=== PATIENT | female | born 1985 | race Caucasian/White ===

== ENCOUNTER 2017-05-05 09:27 | Inpatient (IN) | payer OTHER ==
[~2017-05-05] VITALS: Ht 167.6 cm; Wt 92.0 kg
[~2017-05-05 09:27] MED LIST: AZITHROMYCIN250 MG PO; PREDNISONE20 MG PO; PRENATAL VITAM1 EAC7 PO; PROVENTIL HFA6.7 GM INH
--- NOTE | 2017-05-14 09:05 | NUR ---
05/14/17 0905 Yesenia Randall 0843 PT AWAKE AND TALKING. IV INFUSING WITH LR AND 30 OF PIT. 0856 MD AT BEDSIDE. 0902 BABY SKIN TO SKIN WITH PT.
--- NOTE | 2017-05-15 10:38 | OR ---
[facility] [address] [place] [id number] Signed DATE OF OPERATION: 05/14/2017 SURGEON: Sharan Espinal MD PREOPERATIVE DIAGNOSIS: Term , previous section x3, and sterilization. POSTOPERATIVE DIAGNOSIS: Term , previous section x3, and sterilization. PROCEDURE PERFORMED: Repeat low transverse segment section delivery of live male infant with immediate bilateral tubal ligation. STAND GRINDER: Dr. Olguin. ANESTHESIA: Spinal. ESTIMATED BLOOD LOSS: 500 mL. COMPLICATIONS: None. DRAINS: Jennings to bladder. FINDINGS: Live male infant, Apgars 8 and 9, weight 8 pounds and 1 ounce. Normal uterus with few filmy omental adhesions to the anterior upper portion of the uterus and normal tubes and ovaries bilateral. There was a large amount of omental tissue adherent to the lower left side of the anterior wall peritoneum, and the bladder was somewhat raised up the lower uterine segment that there were no adhesions between the anterior abdominal wall and the lower uterine segment. Electronically Signed By: SHARAN ESPINAL MD 05/15/17 1038 PATIENT NAME: SOPHIE ENRIQUEZ OPERATIVE REPORT DATE OF : 89 PHYSICIAN: SHARAN ESPINAL MD REPORT #: [id number] REPORT IS CONFIDENTIAL AND NOT TO BE RELEASED WITHOUT AUTHORIZATION [facility] [address] [place] [id number] Signed DESCRIPTION OF PROCEDURE: The patient was brought to the operating room and placed in supine position. After adequate general anesthesia was obtained, was prepped and draped in usual sterile fashion. Jennings catheter was placed in the bladder. Pfannenstiel skin incision was made through previous surgical scar. Subcutaneous tissue was dissected with scalpel and the Bovie. Subcutaneous tissue was nicked and extended in transverse fashion using curved scissors. The underlying abdominal musculature was scarred along the midline and adherent to the peritoneum and also in several places to the omentum. This all seemed to be one in the midline and seemed to be one thick area of scar tissue. Higher up near the umbilicus, a thinner area was noted. This was grasped with hemostats, elevated, and nicked with Metzenbaum scissors and finger placed in the abdomen and swept around to make sure there were no adhesions present in the incision opened with Prado scissors along the midline. Care was taken to open the scar tissue in layers closer to the pelvis to avoid the bladder. The muscle was using Metzenbaum scissors. The peritoneum and the omentum were taken down until had an adequate opening in the abdomen. There were few filmy omental adhesions to the anterior upper uterus and these were cauterized with the Bovie to free them. At this point, the uterus was free and Avni self-retaining retractor could be inserted and so this was placed in the abdomen. The lower uterine segment was identified. The bladder could be seen on the lower uterine segment. So an area approximately 2-3 cm above the bladder was opened in the midline. Using a scalpel and finger dissection, extended the incision in a transverse fashion. Bulging bag of clear fluid came from the incision. This was opened with pickups with teeth. The fetus was noted to be in transverse position with the head to the right. After rupturing membranes, the head was brought down into the lower uterine segment and the infant delivered in vertex presentation. The 's mouth and nose were suctioned with a bulb syringe while the cord was doubly clamped and cut. The was passed off the table in good condition to awaiting nurse. The placenta was manually removed and uterine cavity explored with a lap pad to remove any retained membranes. An angle stitch of 0-Monocryl was placed at one end of the incision and running locking stitch of 0-Monocryl starting at the other end and used to close the incision. A second running locking stitch of 0-Monocryl was used to imbricate the first layer. Good hemostasis was noted. The entire pelvis was irrigated, suctioned, and examined and any superficial bleeding spot was cauterized with the Bovie. At this point, the right fallopian tube was identified and midportion of the tube grasped with [place] clamp. The entire length of the tube could be seen including the fimbriated end. An avascular portion of the mesosalpinx under the [place] was opened with a Bovie and then two ligatures of 0-chromic were passed through the hole and the fallopian tube tied on either side of the Delmy clamp. The intervening portion of the tube was removed using Metzenbaum scissors and the two cut ends cauterized with the Bovie. Good hemostasis was noted. The left side was done in similar fashion, grasping midportion of the tube. There were few filmy adhesions from the tube to the ovary and these were taken down to free up the Electronically Signed By: SHARAN ESPINAL MD 05/15/17 1038 PATIENT NAME: SOPHIE ENRIQUEZ OPERATIVE REPORT DATE OF : 89 PHYSICIAN: SHARAN ESPINAL MD REPORT #: [id number] REPORT IS CONFIDENTIAL AND NOT TO BE RELEASED WITHOUT AUTHORIZATION [address] [place], [place] [address] Signed tube. The entire length of the tube could be seen including the fimbriated end, confirming that it was the tube. An avascular portion of the mesosalpinx was opened with the Bovie and two ligatures of 0-chromic suture placed through the opening and the tube tied on either side of the [place] clamp. Again, the midportion of the tube was removed and the two cut ends cauterized with the Bovie. This side also showed good hemostasis. The entire pelvis was again irrigated, inspected, and noted to have good hemostasis. The Avni retractor was removed. The anterior peritoneum was closed using running stitch of 2-0 Vicryl. Correction a sheet of ACell placed over lower uterine segment to help with healing and then the anterior wall peritoneum closed using running stitch of 2-0 Vicryl suture. The abdominal musculature was reapproximated using interrupted stitches of 0-Vicryl suture. The abdominal wall incision was irrigated, suctioned, and examined, and any bleeding spots cauterized with the Bovie. Powdered ACell sprinkled on the abdominal musculature to help with healing and then the fascia closed using two running stitch of 0-Vicryl suture meeting in the midline. The subcutaneous tissue was irrigated, suctioned, and examined; and any bleeding spots cauterized with the Bovie. Subcutaneous tissue was then sprinkled with the second vial of powdered ACell and closed using interrupted stitches of 3-0 Vicryl suture. The skin was reapproximated using skin clips. The patient tolerated the procedure well went to recovery room in good condition. Sponge, needle, and instrument count were correct at the end of the procedure. Sharan Espinal MD MJB/MODL /[id number] Electronically Signed By: SHARAN ESPINAL MD 05/15/17 1038 PATIENT NAME: SOPHIE ENRIQUEZ OPERATIVE REPORT DATE OF : 89 PHYSICIAN: SHARAN ESPINAL MD REPORT #: [id number] REPORT IS CONFIDENTIAL AND NOT TO BE RELEASED WITHOUT AUTHORIZATION
--- NOTE | 2017-05-16 12:45 | PR ---
[facility] [address] [place] [address] Signed PP Progress Notes Datetime Report Generated by CPN: 05/16/2017 12:45 SUBJECTIVE: [id number] Pain: Within normal limits Nausea/Vomiting: Denies Vital Signs: [id number] Vital Signs: Reviewed; Within Normal Limits Notable Details: PP Hgb/Hct = 12.0/33.8 EXAM: [id number] Abdomen/Uterus: Normal Lochia: Normal Extremities: Normal Incision: Normal IMPRESSION/PLAN/PROCEDURES: [id number] Impression: Normal progression Plan: Discharge Procedures: None Progress Notes: Doing well, without complaint, ready to go home. Signing Physician: Dolores Burgos MD CC: *Electronically Signed* 05/16/17 1245 DOLORES BURGOS MD PATIENT NAME: SOPHIE ENRIQUEZ PROGRESS NOTE DATE OF : 89 PHYSICIAN: DOLORES BURGOS MD RPT #: [id number] REPORT IS CONFIDENTIAL AND NOT TO BE RELEASED WITHOUT AUTHORIZATION
== END 2017-05-16 13:25 | disposition home or self-care (01) | DRG 765 ==
LOC: FBC 05-14 05:55
PROVIDERS: ADMIT General Practice
PROC: 0UB70ZZ Excision of Bilateral Fallopian Tubes, Open Approach (ICD-10-PCS; 2017-05-14)
PROC: 10D00Z1 Extraction of Products of Conception, Low, Open Approach (ICD-10-PCS; principal; 2017-05-14 06:45)
DX: O34.211 Maternal care for low transverse scar from previous cesarean delivery (principal); O40.3XX0 Polyhydramnios, third trimester, not applicable or unspecified; N85.8 Other specified noninflammatory disorders of uterus; Z30.2 Encounter for sterilization; Z3A.39 39 weeks gestation of pregnancy; Z37.0 Single live birth
CPT/HCPCS: 01961; 36415; 85027; 88302; C1763; J0690; J2274; J2405; J2590; J2765; J3010; J7120

== ENCOUNTER 2022-05-05 06:22 | Day surgery (SDC) | payer BC, OTHER ==
[~2022-05-05] VITALS: Ht 167.6 cm; Wt 77.3 kg
--- NOTE | ~2022-05-05 | OR ---
[facility] [address] [place], [place] [address] Draft DATE OF OPERATION: 05/05/2022 SURGEON: Dennis Fitzgerald MD PREOPERATIVE DIAGNOSES: Chronic middle ear effusions, hearing loss history. POSTOPERATIVE DIAGNOSES: Chronic middle ear effusions, hearing loss history. PROCEDURES: Bilateral myringotomy and ventilation tube insertion with tympanostomy tubes. ANESTHESIA: General LMA; Tam SULLIVAN. PREOPERATIVE HISTORY: Ms. Paula is a 37-year-old young lady with chronic middle ear effusions, hearing loss, unresponsive to appropriate medications. She is taken to the operating room for the above-mentioned procedures. OPERATIVE PROCEDURE AND FINDINGS: After informed consent, the patient was taken to the operating room, placed in the supine position where general LMA anesthesia was induced. The patient and procedure were verified. The patient was repositioned. Left ear examined with the operating microscope. The eardrum was severely retracted. Anterior-inferior radial myringotomy was made. A T-tube was inserted in the myringotomy site. Ofloxacin ophthalmic drops applied to the ear canal, cotton ball the meatus. Minimal middle ear effusion on this side. The right ear was examined with the operating microscope. The eardrum was retracted and dull. Anterior-inferior radial myringotomy was made. Thick mucoid effusion suctioned from the middle ear space. T-Tube placed in myringotomy site, ofloxacin drops, cotton ball. The patient tolerated the procedure well, was awakened, extubated, transported to recovery room in good condition. No complications. BLOOD LOSS: Minimal. SPECIMEN: PATIENT NAME: SOPHIE PAULA OPERATIVE REPORT DATE OF : 89 REPORT #: [id number] PHYSICIAN: DENNIS FITZGERALD MD PCP: CHIOMA ENG PA-C REPORT IS CONFIDENTIAL AND NOT TO BE RELEASED WITHOUT AUTHORIZATION [address] [place], [place] [address] Draft None. DRAINS: None. Dennis Fitzgerald MD GC/MOLLY /[id number] Copies: ~ PATIENT NAME: SOPHIE PAULA OPERATIVE REPORT DATE OF : 89 REPORT #: [id number] PHYSICIAN: DENNIS FITZGERALD MD PCP: CHIOMA ENG PA-C REPORT IS CONFIDENTIAL AND NOT TO BE RELEASED WITHOUT AUTHORIZATION
[~2022-05-05 06:22] MED LIST changes: +PROZAC20 MG PO
--- NOTE | 2022-05-05 09:06 | NUR ---
[id number]: PT OFFERED TO LEAVE HOSPITAL AND COME BACK AT 0900 DUE TO DELAY IN CASES BUT PREFERS TO JUST STAY AND REST. CALL LIGHT WITHIN REACH, DAUGHTER AT BEDSIDE.
--- NOTE | 2022-05-05 10:43 | NUR ---
05/05/22 1043 Basilia Guzmán 1040-PATIENT ARRIVED TO PACU ON 6L MASK NONAROUSABLE ORAL AIRWAY RN DOING JAW THRUST TO MAINTAIN OPEN AIRWAY. COTTON BALLS BILATERAL CDI. SR. IVF INFUSING. 1043-PATIENT REMAINS NONAROUSABLE ORAL AIRWAY IN PLACE AND MAINTAING OWN AIRWAY.
--- NOTE | 2022-05-05 11:17 | NUR ---
1000: PT BACK TO DS RM 6 FROM PACU DROWSY. PT AROUSES WITH VERBAL STIMULATION AND DENIES NAUSEA OR PAIN. PT DAUGHTER AT BEDSIDE, CALL LIGHT WITHIN REACH. PT PROVIDED WITH ICED WATER AND DC CRITERIA EXPLAINED.
--- NOTE | 2022-05-05 13:41 | NUR ---
1200: PT ASKS IF SHE CAN GET DRESSED. PT SITS AT SIDE OF BED, DENIES DIZZINESS OR NAUSEA WITH POSITION CHANGE. PT DRESSES SELF WITH DAUGHTER AT BEDSIDE AND AMBULATES TO BATHROOM WITH STEADY GAIT, ABLE TO VOID QS WITH NO PROBLEMS. BACK TO DS RM 6 AND THIS RN AND NATE HANSEN IN TO ASSESS. PT STATES, "IS IT NORMAL FOR MY EARS TO FEEL "STUFFY" STILL?" DR. FITZGERALD CALLED WHO STATES THAT PT HAD BLEEDING IN LEFT EAR AND THAT FULLNESS SHOULD RESOLVE IN A DAY OR TWO WITH PROVIDED EARDROPS. PT DENIES ANY PAIN BILATERALLY AND STATES RIGHT EAR FEELS GREAT AND CAN HEAR WELL OUT OF IT. DC INSTRUCTIONS PRESENTED TO PT AND DAUGHTER AT BEDSIDE AND DC VIA WC TO HOME FROM DS RM 6.
== END 2022-05-05 12:30 | disposition home or self-care (01) ==
LOC: DS 06:22 → OPS 06:22 → DS 08:00 → OPS 09:00
PROVIDERS: ATTEND Otolaryngology
PROC: 099570Z Drainage of Right Middle Ear with Drainage Device, Via Natural or Artificial Opening (ICD-10-PCS; 2022-05-05)
PROC: 099670Z Drainage of Left Middle Ear with Drainage Device, Via Natural or Artificial Opening (ICD-10-PCS; principal; 2022-05-05 09:00)
DX: H65.23 Chronic serous otitis media, bilateral (principal)
CPT/HCPCS: J1100; J1885; J2250; J2405; J2704; J2765; J3010; J7121